=== PATIENT | female | born 1985 | race Caucasian/White ===

== ENCOUNTER → 2020-03-12 | Outpatient (CLI) | payer OTHER | LOC: LAB 08:20 | PROVIDERS: ATTEND Obstetrics & Gynecology Reproductive Endocrinology | DX: Z32.00 Encounter for pregnancy test, result unknown (principal) | CPT/HCPCS: 36415; 84144; 84702 ==

== ENCOUNTER 2020-04-11 15:45 | Emergency (ER) | payer OTHER ==
[~2020-04-11] VITALS: Ht 157.5 cm; Wt 56.5 kg
[2020-04-11 15:45] VITALS: BP 115/78
[2020-04-11] MEDS ORDERED: ACETAMINOPHEN 500 MG TABLET PO ONE (16:15)
--- NOTE | 2020-04-11 16:22 | RAD ---
Exam: Right ankle 3 views. Right foot 3 views INDICATION: Dropped 80 pound weight on foot one week ago TECHNIQUE: Frontal, lateral and oblique views of the right ankle and right foot. Comparisons: None FINDINGS: Foot: Bone mineralization is normal. No acute or healed fractures. Soft tissues are unremarkable. Joint spaces are well-maintained. Ankle: Bone mineralization is normal. No acute or healed fractures. Soft tissues are unremarkable. Joint spaces are well-maintained. IMPRESSION: 1. No acute osseous abnormality of the right foot. 2. No acute osseous abnormality of the right ankle. Electronically signed by: Kalia Goins MD (04/11/2020 4:19 PM) [id number]
--- NOTE | 2020-04-11 16:36 | PHYS DOC ---
Past History Past Medical History: No Pertinent History Past Surgical History: No Surgical History Alcohol Use: None General Adult EDM: Chief Complaint: ANKLE PROBLEM HPI: HPI: The history was obtained from the patient. Patient is a 35-year-old female who presents with chief complaint of right foot pain and concern for . She states approximate 1 week ago she dropped an 80 pound weight on her right foot while at work. She states that the weight landed on the medial aspect of her proximal ankle. She has been able to ambulate after the incident however has been painful. She has been taking Tylenol only at home because she has a history of gastric bypass and cannot take anti-inflammatories. She does note some slight bruising to the anterior proximal ankle. She denies any deformities. Denies any numbness or tingling. She also is concerned that she may be as she is 1 day late for her period. Denies abdominal pain or vaginal bleeding. No other complaints. Review of Systems: Review of Systems: Constitutional: Denies fever or chills Eyes: Denies change in visual acuity HENT: Denies nasal congestion or sore throat Respiratory: Denies cough or shortness of breath Cardiovascular: Denies chest pain or edema GI: Denies abdominal pain, nausea, vomiting, bloody stools or diarrhea : Denies dysuria Musculoskeletal: Positive for ankle pain Integument: Denies rash Neurologic: Denies headache, focal weakness or sensory changes Endocrine: Denies polyuria or polydipsia Lymphatic: Denies swollen glands Psychiatric: Denies depression or anxiety Heart Score: Risk Factors: Risk Factors: DM, Current or recent (<one month) smoker, HTN, HLP, family history of CAD, obesity. Risk Scores: Score 0 - 3: 2.5% MACE over next 6 weeks - Discharge Home Score 4 - 6: 20.3% MACE over next 6 weeks - Admit for Clinical Observation Score 7 - 10: 72.7% MACE over next 6 weeks - Early Invasive Strategies Current Medications: Current Meds: Current Medications Medications (Trade) Dose Ordered Sig/Ainsley Start Time Stop Time Status Last Admin Dose Admin Acetaminophen (Tylenol) 1,000 mg 1X ONCE 04/11/20 16:15 04/11/20 16:16 DC Allergies: Allergies: Allergies Coded Allergies Type Severity Reaction Last Updated Verified iodine Allergy Unknown rash 04/11/20 Yes Physical Exam: PE: Constitutional: Well developed, well nourished, no acute distress, non-toxic appearance. [] HENT: Normocephalic, atraumatic, bilateral external ears normal, oropharynx moist, no oral exudates, nose normal. [] Eyes: PERRLA, EOMI, conjunctiva normal, no discharge. [] Neck: Normal range of motion, no tenderness, supple, no stridor. [] Cardiovascular:Heart rate regular rhythm, no murmur [] Lungs & Thorax: Bilateral breath sounds clear to auscultation [] Abdomen: Bowel sounds normal, soft, no tenderness, no masses, no pulsatile radha s. [] Skin: Warm, dry, no erythema, no rash. [] Back: No tenderness, no CVA tenderness. [] Extremities: R KNEE/ANKLE/FOOT: Focal tenderness to palpation slightly lateral and proximal to the medial malleolus. Slight overlying ecchymosis appreciated. Tissue compartments are soft. Distal pulses are 2+. Knee extension is intact. Plantar flexion is intact. Proximal fibula is not tender to palpation. Medial malleolus is not tender to palpation. Lateral malleolus is not tender to palpation. 5th metatarsal head is not tender to palpation. There is no obvious deformity. Passive ROM is reduced due to pain. Active ROM is reduced due to pain. Neurologic: Alert and oriented X 3, normal motor function, normal sensory function, no focal deficits noted. [] Psychologic: Affect normal, judgement normal, mood normal. [] Current Patient Data: Labs: Laboratory Tests Test 04/11/20 16:10 POC Urine HCG, Qualitative hcg negative (Negative) Vital Signs: Vital Signs Date Time Temp Pulse Resp B/P (MAP) Pulse Ox O2 Delivery O2 Flow Rate FiO2 04/11/20 15:45 97.9 84 16 115/78 (90 98 Room Air EKG: EKG: [] Radiology/Procedures: Radiology/Procedures: [][address] [address] IMAGING REPORT Signed PATIENT: TANA BARROSO ACCOUNT: [id number] : 1985 LOCATION: ER AGE: 35 SEX: F EXAM STATUS: REG ER ORD. PHYSICIAN: MENG BAHENA DO REASON: dropped 80lb weight on foot 1 week ago PROCEDURE: FOOT RIGHT 3V Exam: Right ankle 3 views. Right foot 3 views INDICATION: Dropped 80 pound weight on foot one week ago TECHNIQUE: Frontal, lateral and oblique views of the right ankle and right foot. Comparisons: None FINDINGS: Foot: Bone mineralization is normal. No acute or healed fractures. Soft tissues are unremarkable. Joint spaces are well-maintained. Ankle: Bone mineralization is normal. No acute or healed fractures. Soft tissues are unremarkable. Joint spaces are well-maintained. IMPRESSION: 1. No acute osseous abnormality of the right foot. 2. No acute osseous abnormality of the right ankle. Electronically signed by: Kalia Colón MD (04/11/2020 4:19 PM) [id number] DICTATED AND SIGNED BY: KALIA COLÓN MD DATE: 04/11/20 1619 CC: JEZ MARIA; MENG BAHENA DO ~ Course & Med Decision Making: Course & Med Decision Making Pertinent Labs and Imaging studies reviewed. (See chart for details) Patient is a 35-year-old female who presents with chief complaint of right ankle pain status post dropping a weight on her foot as well as concern for p regnancy. Urine test was negative. Plain film imaging reveals no acute fracture. I did offer a walking boot and postoperative shoe for comfort. She declined both of these. I did encourage her to continue use Tylenol, rest, ice, compression, and elevation as she cannot use anti-inflammatories. Patient expressed understanding. Return precautions discussed and understood. Stable for discharge home. Kourtney Disclaimer: Kourtney Disclaimer: This electronic medical record was generated, in whole or in part, using a voice recognition dictation system. Departure Departure: Impression: Primary Impression: Right ankle injury Qualified Codes: S99.911A - Unspecified injury of right ankle, initial encounter Disposition: HOME/RESIDENCE PRIOR TO ADM Condition: GOOD Referrals: JEZ MARIA (PCP) Patient Instructions: Ankle Exercises, Generic-SportsMed Justification of Admission: Justification of Admission: Justification of Admission Dx: N/A MENG BAHENA DO Apr 11, 2020 16:36
== END 2020-04-11 16:38 | disposition home or self-care (01) ==
LOC: ER 15:45
DX: S99.911A Unspecified injury of right ankle, initial encounter (principal); Z32.02 Encounter for pregnancy test, result negative; Z98.84 Bariatric surgery status; Z88.8 Allergy status to other drugs, medicaments and biological substances; W20.8XXA Other cause of strike by thrown, projected or falling object, initial encounter; Y93.89 Activity, other specified; Y92.89 Other specified places as the place of occurrence of the external cause; Y99.8 Other external cause status
CPT/HCPCS: 73610; 73630; 81025; 99284